=== PATIENT | male | born 1945 | race Hispanic/Latino ===

== ENCOUNTER 2017-08-06 08:00 | Inpatient (IN) | payer MEDICARE ==
--- NOTE | 2017-08-01 10:45 | Anesthesia Consultation ---
Anesthesia Consult and Med Hx Date of service: 08/06/17 - Airway Anesthetic Teeth Evaluation: Dentures ROM Head & Neck: Adequate Mental/Hyoid Distance: Adequate Mallampati Class: Class II Intubation Access Assessment: Probably Good - Pulmonary Exam CTA: Yes - Cardiac Exam Cardiac Exam: RRR - Pre-Operative Health Status ASA Pre-Surgery Classification: ASA3 Proposed Anesthetic Plan: General - Pulmonary Hx Smoking: Yes (former) Hx Asthma: Yes COPD: Yes (last prn neb treatment approx 2 weeks ago) - Cardiovascular System Hx Hypertension: Yes (treated for HTN, lately BP has been low) Hx Coronary Artery Disease: Yes Hx Heart Attack/AMI: Yes (x2, 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 patient has been advised by commutator assembler to cont. plavix. Informed consent obtained
[2017-08-01 11:11] LABS: Basophils # (Auto) 0.1 K/mm3 (0.0-0.1); Basophils % (Auto) 0.9 % (0.0-1.8); Eosinophils # (Auto) 0.3 K/mm3 (0.0-0.4); Eosinophils % (Auto) 4.1 % (0.0-4.3); Hematocrit 41.4 % (35.5-45.6); Hemoglobin 14.1 gm/dl (11.8-15.2); Lymphocytes # (Auto) 1.8 K/mm3 (1.2-5.4); Lymphocytes % (Auto) 27.4 % (13.4-35.0); Mean Corpuscular HGB Conc 34 % (32-34); Mean Corpuscular Hemoglobin 32 pg (28-32); Mean Corpuscular Volume 93 fl (84-94); Monocytes # (Auto) 0.7 K/mm3 (0.0-0.8); Monocytes % (Auto) 10.6 % (0.0-7.3); Platelet Count 171 K/mm3 (140-440); Red Blood Count 4.47 M/mm3 (3.65-5.03); Red Cell Distribution Width 13.4 % (13.2-15.2)
[2017-08-01 11:24] LABS: Calcium 8.9 mg/dL (8.4-10.2)
[2017-08-01 11:30] LABS: INR 0.98 (0.87-1.13)
--- NOTE | 2017-08-06 07:38 | Anesthesia Day of Surgery ---
Anesthesia Day of Surgery - Day of Surgery Patient Examined: Yes Patient H&P Reviewed: Yes Patient is NPO: Yes Beta Blockers: Yes Cardiac Clearance: Yes
[~2017-08-06 08:00] MED LIST: ANCEF/STERILE WATER 2 GM/20 ML 2 GM/20 ML SYRINGE IV NR; DECADRON ONE; DIPRIVAN 10 MG/ML IV ONE; HEPARIN 10,000 UNITS/10 ML ONE; HEPARIN IV ONE; MARCAINE 0.25% INFILTRATI ONE; NACL 0.9% 1000 ML 1,000 ML IV SCH; NACL 0.9% 500 ML 500 ML ONE; NACL 0.9% 500 ML IRRIGATION ONE; NACL 0.9% IR ONE; NACL BACTERIOSTATIC INFILTRATI ONE; QUELICIN ONE; ROBINUL ONE; SUBLIMAZE ONE; ZEMURON IV ONE; ZOFRAN ONE; ePHEDrine SULFATE ONE
[2017-08-06] MEDS ORDERED: DILAUDID IV PRN (08:30)
[2017-08-06] MEDS ORDERED: PROTAMINE SULFATE ONE (10:45)
[2017-08-06] MEDS ORDERED: QUELICIN ONE (10:48)
[2017-08-06] MEDS ORDERED: ePHEDrine SULFATE ONE (11:03)
[2017-08-06] MEDS ORDERED: NEOSTIGMINE ONE (11:09)
[2017-08-06] MEDS ORDERED: ATROVENT IH PRN (11:15)
[2017-08-06] MEDS ORDERED: PROVENTIL IH PRN (11:15)
[2017-08-06] MEDS ORDERED: PROAIR IH PRN (11:15)
--- NOTE | 2017-08-06 11:49 | Operative Report ---
Operative Report Operative Report: Operative report dictation Date: 08/06/2017 Preoperative diagnosis: Left Carotid artery stenosis. Postoperative diagnosis: Same. Operation: Left carotid endarterectomy. Surgeon: Lidia Faustin. Asst.: Alessandro Leavitt Anesthesia: Gen. EBL: 75 mL Findings: Ulcerated plaque with high-grade stenosis Indications: 72-year-old gentleman was found to have high-grade stenosis left carotid artery 80%. She was discussed medical management versus surgical options and recommended left carotid endarterectomy. Patient initially chose medical management, however upon discussion with his family and during a second thought he agreed with proceeding with surgical option. He was explained risks , benefits and alternatives of procedure chose to proceed, signed informed consent. Operation details: Patient was brought to operating room. Placed in supine position. His neck was prepped and draped in sterile fashion. Timeout was performed before incision and all team members in agreement. Incision was made with 15 blade over right neck and carried down with electrocautery. Subcutaneous tissues and platysma was divided. Sternocleidomastoid muscle was dissected and retracted laterally, internal jugular vein was was dissected, and retracted laterally, fascial vein ligated, divided . Small venous branches and ansa were clipped and divided. Carotid artery was dissected with electrocautery vagus and hypoglossal nerves were identified and preserved. Common carotid was encircled with vessel loop as well as external carotid arteries, superior thyroid was encircled with 2-0 silk. Internal carotid artery was encircled with vessel loop. Patient was heparinized according to weight based heparin. Internal carotid artery was controlled with Castro bulldog, DeBakey clamp was placed over common carotid artery and vessel loop was placed over external carotid artery. Arteriotomy was made with 11 blade and extended with Alves scissors over internal carotid artery and common carotid artery beyond the diseased portion. At this point our bowel shunt was placed starting from internal carotid artery, back bleeding was performed and was good. Then shunt was advanced into common carotid artery. Endarterectomy was then performed with freer elevator. Plaque was divided initially over common carotid using Pott scissors. Nice feathered portion of internal carotid endarterectomized. Then eversion endarterectomy of the external carotid artery was performed. A total tacking sutures 7-0 Prolene placed. Bovine pericardium patch was used. 6-0 Prolene on the BV1 needle was circumferentially sutured and shunt removed before the last few stitches were thrown. Internal carotid and common carotid were backbled. The arterial lumen was flushed with heparinized saline. Stitches were completed. Clamps were removed serially beginning from common carotid external carotid and eventually internal carotid arteries. Patch was checked for hemostasis. Patency of carotid arteries were checked by completion ultrasound. No high velocities were identified in the ICA. Wound was irrigated and checked for hemostasis. Patient was reversed with 20mg of protamine. Wound was closed in layers 3 interrupted stitches approximated the sternocleidomastoid muscle. Platysma was reapproximated with 3 -0 Vicryl. 4-0 Monocryl was used for subcuticular stitches. Skin glue was applied. At the end of procedure all sponge and instrument counts were correct 2. Patient woke up moving all extremities without neurological deficit. Patient tolerated procedure well and was transferred to postanesthesia care unit in stable condition.
--- NOTE | 2017-08-06 14:10 | Post Anesthesia Evaluation ---
- Post Anesthesia Evaluation Patient Participated: Yes Airway Patent: Yes Stable Respiratory Function: Yes Nausea/Vomiting: No Temp > 96.8F: Yes Pain Manageable: Yes Adequeate Hydration: Yes Anesthesia Complications: No
[2017-08-06] MEDS ORDERED: NORCO 5/325 PO PRN (15:02)
[2017-08-06] MEDS ORDERED: MORPHINE IV PRN ×2 (15:02)
[2017-08-06] MEDS ORDERED: NACL 0.9% 1000 ML 1,000 ML IV SCH (16:00)
[2017-08-06] MEDS ORDERED: ANCEF/NS 1 GM/50 ML 1 GM/50 ML BAG IV SCH (16:00)
[2017-08-06] MEDS ORDERED: INTROPIN DRIP 800 MG/D5W 250 ML 800 MG/250 ML BAG IV SCH (16:00)
[2017-08-06] MEDS ORDERED: NIPRIDE 50 MG in D5W 248 ML IV SCH (16:00)
[2017-08-06] MEDS: ceFAZolin 1 GM in NACL 0.9% 20 ML IV SCH (18:15)
[2017-08-06] MEDS: NOVOLOG SUB-Q SCH ×2 (18:15→22:29)
[2017-08-06] MEDS ORDERED: BROVANA NEBU IH SCH (20:00)
[2017-08-06] MEDS ORDERED: PULMICORT IH SCH (20:00)
[2017-08-06 21:10] LABS: Basophils % (Auto) 0.3 % (0.0-1.8); Hematocrit 38.6 % (35.5-45.6); Hemoglobin 13.2 gm/dl (11.8-15.2); Lymphocytes # (Auto) 0.8 K/mm3 (1.2-5.4); Mean Corpuscular HGB Conc 34 % (32-34); Mean Corpuscular Hemoglobin 32 pg (28-32); Mean Corpuscular Volume 93 fl (84-94); Monocytes # (Auto) 0.5 K/mm3 (0.0-0.8); Monocytes % (Auto) 4.3 % (0.0-7.3); Platelet Count 164 K/mm3 (140-440); Red Blood Count 4.17 M/mm3 (3.65-5.03); Red Cell Distribution Width 13.5 % (13.2-15.2)
[2017-08-06 21:14] LABS: Calcium 7.7 mg/dL (8.4-10.2)
[2017-08-06 21:29] LABS: INR 1.05 (0.87-1.13)
[2017-08-06] MEDS ORDERED: CEPACOL X STRENGTH MM PRN (21:35)
[2017-08-06] MEDS ORDERED: LEVEMIR SUB-Q SCH (22:00)
[2017-08-06] MEDS ORDERED: PRAVACHOL PO SCH (22:00)
[2017-08-06] MEDS ORDERED: LOPRESSOR PO SCH (22:00)
[2017-08-06] MEDS: COLACE PO SCH (22:28)
[2017-08-06] MEDS: LOPRESSOR PO SCH (22:30)
[2017-08-07] MEDS: ceFAZolin 1 GM in NACL 0.9% 20 ML IV SCH (00:35)
[2017-08-07] MEDS ORDERED: SYNTHROID PO SCH (06:00)
[2017-08-07] MEDS: NOVOLOG SUB-Q SCH (08:00)
--- NOTE | 2017-08-07 09:03 | Progress Note ---
Assessment and Plan Patient is doing well following his carotid endarterectomy. He will need to be ambulated with nursing. He lives at home with his . Counseled extensively on postoperative care. We'll plan on discharge. Subjective Date of service: 08/07/17 Principal diagnosis: left carotid stenosis Interval history: Patient is status post left carotid endarterectomy. The surgical site is soft with no significant subcutaneous hematoma. Patient has no difficulty with breathing or swallowing. He had consumed his breakfast at time of examination. Patient was sitting at side of the bed. Especially has been removed. No significant complaints of pain at surgical site. Objective - Constitutional Vitals: Vital Signs - 12hr 08/06/17 08/06/17 08/06/17 21:00 22:00 22:02 Pulse Rate 86 74 Pulse Rate [ 77 Anterior Bilateral] Respiratory 16 11 L Rate Respiratory 20 Rate [Anterior Bilateral] Blood Pressure 104/32 104/32 O2 Sat by Pulse 91 96 Oximetry 08/06/17 08/06/17 08/07/17 22:30 23:00 00:00 Pulse Rate 70 69 71 Pulse Rate [ Anterior Bilateral] Respiratory 17 18 Rate Respiratory Rate [Anterior Bilateral] Blood Pressure 124/48 109/48 119/53 O2 Sat by Pulse 93 93 Oximetry 08/07/17 08/07/17 08/07/17 01:00 02:00 03:00 Pulse Rate 73 70 66 Pulse Rate [ Anterior Bilateral] Respiratory 15 13 Rate Respiratory Rate [Anterior Bilateral] Blood Pressure 117/50 117/50 107/48 O2 Sat by Pulse 96 94 94 Oximetry 08/07/17 08/07/17 08/07/17 04:00 05:00 06:00 Pulse Rate 60 59 L 60 Pulse Rate [ Anterior Bilateral] Respiratory 6 L 16 14 Rate Respiratory Rate [Anterior Bilateral] Blood Pressure 118/51 121/51 125/52 O2 Sat by Pulse 95 94 94 Oximetry 08/07/17 07:00 Pulse Rate 74 Pulse Rate [ Anterior Bilateral] Respiratory 16 Rate Respiratory Rate [Anterior Bilateral] Blood Pressure 125/52 O2 Sat by Pulse 92 Oximetry General appearance: Present: no acute distress - EENT Eyes: PERRL, EOM intact ENT: hearing intact - Neck Neck: supple, normal ROM - Respiratory Respiratory effort: normal - Breasts Breasts: deferred - Cardiovascular Rhythm: regular Extremities: no ischemia - Gastrointestinal General gastrointestinal: Present: deferred Rectal Exam: deferred - Genitourinary Male genitourinary: deferred - Integumentary Integumentary: clear, warm - Neurologic Neurologic: no focal deficits (no facial numbness) - Psychiatric Psychiatric: appropriate mood/affect, memory intact - Labs CBC & Chem 7: 08/06/17 20:34 08/06/17 20:34 Labs: Abnormal lab results 08/06/17 08/06/17 08/06/17 Range/Units 11:49 17:47 20:34 WBC 11.5 H (4.5-11.0) K/mm3 Lymph % (Auto) 7.0 L (13.4-35.0) % Lymph # 0.8 L (1.2-5.4) K/mm3 Seg Neutrophils % 88.4 H (40.0-70.0) % Seg Neutrophils # 10.2 H (1.8-7.7) K/mm3 Glucose (75-100) mg/dL POC Glucose 132 H 210 H (70-105) Calcium (8.4-10.2) mg/dL 08/06/17 08/06/17 Range/Units 20:34 22:07 WBC (4.5-11.0) K/mm3 Lymph % (Auto) (13.4-35.0) % Lymph # (1.2-5.4) K/mm3 Seg Neutrophils % (40.0-70.0) % Seg Neutrophils # (1.8-7.7) K/mm3 Glucose 217 H (75-100) mg/dL POC Glucose 188 H (70-105) Calcium 7.7 L (8.4-10.2) mg/dL
--- NOTE | 2017-08-07 09:05 | Discharge Summary ---
Providers - Providers Date of Admission: 08/06/17 08:00 Date of discharge: 08/07/17 Attending physician: ABEL OHARA DO 08/06/17 15:02 Consult to Physician [CONS] Routine Consulting Provider: MAUREEN ARIZMENDI Reason For Exam: ICU admission Was contact made?: Yes If yes, spoke with:: Text Primary care physician: TRISTAN MELÉNDEZ Hospitalization Condition: Good Disposition: DC-01 TO HOME OR SELFCARE Core Measure Documentation - Palliative Care Palliative Care/ Comfort Measures: Not Applicable - Core Measures Any of the following diagnoses?: none Exam - Constitutional Vitals: Temp Pulse Resp BP Pulse Ox 97.0 F L 74 16 125/52 92 08/06/17 11:30 08/07/17 07:00 08/07/17 07:00 08/07/17 07:00 08/07/17 07:00 General appearance: Present: no acute distress - EENT Eyes: Present: PERRL, EOM intact ENT: hearing intact - Neck Neck: Present: supple, normal ROM, other (post op CEA) - Respiratory Respiratory effort: normal - Cardiovascular Rhythm: regular - Extremities Extremities: no ischemia - Abdominal General gastrointestinal: Present: deferred Male genitourinary: Present: deferred - Rectal Rectal Exam: deferred - Integumentary Integumentary: Present: clear, warm - Psychiatric Psychiatric: appropriate mood/affect, cooperative - Neurologic Neurologic: no focal deficits Plan Activity: advance as tolerated, other (no driving until follow-up appointment) Weight Bearing Status: Weight Bear as Tolerated Diet: regular Wound: keep clean and dry, per your surgeon's advice Follow up with: TRISTAN MELÉNDEZ MD [Primary Care Provider] - 7 Days
[2017-08-07] MEDS ORDERED: INSULIN GLARGINE 40 UNIT SQ SCH (10:00)
[2017-08-07] MEDS ORDERED: ZETIA PO SCH (10:00)
[2017-08-07] MEDS ORDERED: THERAGRAN-M Tab PO SCH (10:00)
[2017-08-07] MEDS ORDERED: SALMETEROL IH SCH (10:00)
[2017-08-07] MEDS ORDERED: NON-FORMULARY (Multivitamin [Multiple Vitamins] 1 EACH) PO SCH (10:00)
[2017-08-07] MEDS ORDERED: NON-FORMULARY (Simvastatin [Simvastatin] 40 MG) PO SCH (10:00)
[2017-08-07] MEDS ORDERED: FLUTICASONE IH SCH (10:00)
[2017-08-07] MEDS ORDERED: PLAVIX PO SCH (10:00)
[2017-08-07] MEDS ORDERED: HCTZ PO SCH (10:00)
[2017-08-07] MEDS ORDERED: HALFPRIN EC PO SCH (10:00)
[2017-08-07] MEDS ORDERED: NON-FORMULARY (Liraglutide [Victoza 2-Pak] 1.8 MG) SQ SCH (10:00)
[2017-08-07] MEDS ORDERED: NON-FORMULARY (Hydrochlorothiazide [Hydrochlorothiazide] 12.5 MG) PO SCH (10:00)
[2017-08-07] MEDS ORDERED: ZESTRIL PO SCH (10:00)
[2017-08-07] MEDS: COLACE PO SCH (10:02)
[2017-08-07] MEDS: LOPRESSOR PO SCH (10:03)
[2017-08-07 10:07] VITALS: BP 156/71
--- NOTE | 2017-08-10 15:23 | Vascular Lab Report ---
INTRAOPERATIVE CAROTID ARTERY DUPLEX Reason for exam: Completion of carotid endarterectomy Comments on the left: The common and internal carotid arteries are patent without evidence of intraluminal irregularities. Flow velocities appear to be appropriate. No obvious technical defects at the endarterectomy site appreciated. Impression: No obvious technical imperfections at the endarterectomy site.
== END 2017-08-07 10:45 | disposition home or self-care (01) | DRG 39 ==
LOC: 3A 08:00 → CC1 17:21
PROVIDERS: ADMIT Surgery Vascular Surgery; ATTEND Surgery Vascular Surgery
PROC: 03CJ0ZZ Extirpation of Matter from Left Common Carotid Artery, Open Approach (ICD-10-PCS; principal; 2017-08-06)
PROC: 03CN0ZZ Extirpation of Matter from Left External Carotid Artery, Open Approach (ICD-10-PCS; 2017-08-06)
PROC: 03CL0ZZ Extirpation of Matter from Left Internal Carotid Artery, Open Approach (ICD-10-PCS; 2017-08-06)
PROC: 03UN0KZ Supplement Left External Carotid Artery with Nonautologous Tissue Substitute, Open Approach (ICD-10-PCS; 2017-08-06)
DX: I65.22 Occlusion and stenosis of left carotid artery (principal); K21.9 Gastro-esophageal reflux disease without esophagitis; E11.22 Type 2 diabetes mellitus with diabetic chronic kidney disease; I12.9 Hypertensive chronic kidney disease with stage 1 through stage 4 chronic kidney disease, or unspecified chronic kidney disease; N18.3 Chronic kidney disease, stage 3 (moderate); J44.9 Chronic obstructive pulmonary disease, unspecified; I25.10 Atherosclerotic heart disease of native coronary artery without angina pectoris; F17.200 Nicotine dependence, unspecified, uncomplicated; E11.51 Type 2 diabetes mellitus with diabetic peripheral angiopathy without gangrene; E03.9 Hypothyroidism, unspecified; Z95.1 Presence of aortocoronary bypass graft; Z95.5 Presence of coronary angioplasty implant and graft; Z83.3 Family history of diabetes mellitus; Z82.49 Family history of ischemic heart disease and other diseases of the circulatory system; Z82.3 Family history of stroke; Z71.89 Other specified counseling; I25.2 Old myocardial infarction; Z79.4 Long term (current) use of insulin
CPT/HCPCS: 36415; 36620; 80048; 82962; 85025; 85610; 86850; 86900; 86901; 88304; 88311; A9270-GY; C1768; J0330; J0690; J1100; J1644; J1815; J1818; J2405; J2704; J2710; J2720; J3010; J7030; J7040